=== PATIENT | male | born 1995 | race Caucasian/White ===

== ENCOUNTER 2020-10-09 18:01 | Emergency (ER) | payer OTHER, SELFPAY ==
[2020-10-09 18:03] VITALS: BP 158/103; PULSE 102; RESP 18; TEMP 36.4; O2SAT 97; BMI 30.8
[2020-10-09] MEDS: 0.9% Normal Saline 1,000 ML 1000 ML IV (18:33)
[2020-10-09 18:37] LABS: Absolute Neutrophil Count 4.5 X10^3/uL (2.0-7.7); Basophil# 0.06 X10^3/uL; Basophil% 0.9 % (0-1); Eosinophil# 0.17 X10^3/uL; Eosinophils% 2.5 % (0-5); Hematocrit 47.1 % (40-54); Hemoglobin 16.4 g/dL (13.0-16.5); Lymphocyte % 26.4 % (19-41); Mean Corp Hgb Conc 34.8 g/dL (32-36); Mean Corpuscular Volume 86.3 fL (80-94); Mean Platelet Vol. 10.2 fl (6.2-12.0); Monocyte# 0.31 X10^3/uL; Monocyte% 4.5 % (0-10); NRBC Flagged by Analyzer 0 % (0-5); Neutrophil # 4.46 X10^3/uL (2.7-7.7); Neutrophil % 65.4 % (47-70); Platelet Count 284 K/mm3 (150-450); RBC Distribution Width SD 37.8 fl (35.1-43.9); Red Blood Count 5.46 M/mm3 (4.6-6.2); White Blood Count 6.8 K/mm3 (4.4-11.0)
[2020-10-09 18:55] LABS: ALB/GLOB Ratio 1.3 RATIO (0.9-2.4); AST(SGOT) 19 U/L (15-37); Alanine Aminotransfer ALT/SGPT 40 U/L (16-61); Albumin, Serum 4.4 g/dL (3.2-5.0); Alkaline Phosphatase 84 U/L (45-117); Anion Gap 5 (5-15); BUN 10 mg/dL (7-18); Calcium,Total 8.8 mg/dL (8.5-10.1); Chloride 107 mmol/L (98-107); Creatinine, Serum 1.11 mg/dL (0.70-1.30); EST Glomerular Filtration Rate 87 mL/min (>60); Est Glom Filt Rate - Afr Amer 105 mL/min (>60); Estimated Creatinine Clearance 120.34 ml/min; Globulin 3.3 g/dL (2.2-4.2); Glucose 111 mg/dL (74-106); Lipase 155 U/L (73-393); Protein, Total 7.7 g/dL (6.4-8.2); Sodium Level 138 mmol/L (136-145)
[2020-10-09 19:06] LABS: Bacteria 0 SEEN /hpf (None Seen); Mucous, Urine 0 SEEN /hpf (<or=2+); Red Blood Cells-Urine 0 SEEN /hpf (0-5); Squamous Epithelial Cells - UA 0 SEEN /hpf (0-5); White Blood Cells 0 SEEN /hpf (0-5)
--- NOTE | 2020-10-09 19:15 | CT_ITS ---
STUDY: CT ABDOMEN AND PELVIS WITH CONTRAST REASON FOR EXAM: Male, 24 years old. Upper abdomen pain x 1 week intermittently, worse LUQ. No prior abdominal surgeries. RADIATION DOSAGE (If Supplied By Facility): CTDIvol = ( 16.17 ) mGy, DLP = ( 1377.35 ) mGycm TECHNIQUE: Transaxial images were obtained from the dome of the diaphragm to the symphysis pubis without oral contrast. 100mL Isovue 300 was administered. Sagittal and coronal images were reconstructed. Individualized dose optimization techniques were used for this CT. COMPARISON: 04/28/2016 FINDINGS: The visualized lung bases are unremarkable. The visualized portions of the heart are within normal limits. Normal liver. Normal gallbladder and extrahepatic biliary system. Normal spleen. Normal pancreas. Normal bilateral adrenal glands. Normal right kidney. Normal left kidney. Normal visualized stomach. Normal small intestine. Normal colon. The appendix is visualized and appears normal. Normal abdominal aorta. Normal inferior vena cava. Normal retroperitoneum. Normal urinary bladder. Normal abdominal wall. Normal osseous structures. CT/Abdomen/Pelvis W IV Cont ONLY IMPRESSION: Normal enhanced CT of the abdomen and pelvis. Electronically Signed: Sanchez Sainz DO at 20:35 EST Tel [phone], Service support ,
[2020-10-09 19:27] LABS: Color, Urine Yellow (Yellow); Glucose, Dipstick Normal (Normal); Ketone-Dipstick Negative (Negative); Leukocyte Esterase-Dipstick Negative /ul (Negative); Nitrite-Dipstick Negative (Negative); Occult Blood-Urine Negative /ul (Negative); Protein-Dipstick Negative (Negative); Urine Bilirubin Dipstick Negative (Negative); Urine Clarity Sl. Cloudy (Clear); Urine Urobilinogen Normal (Normal)
--- NOTE | 2020-10-09 20:45 | ED.VISSUMM ---
- ER Visit Summary Date of Service: 10/09/20 Chief Complaint: Abdominal pain History of Present Illness: The patient is a 24 M with left upper quadrant abdominal pain. This has been going on for days but getting worse. It is dull, but then he has sharp pains with movement. He thought he might of had a bulge in the area but that resolved. He had some diarrhea recently as well as back pain. He never had this before. History of Graves' disease and headaches. Uses medical marijuana. No other medications. Physical Examination: Afebrile and vital signs unremarkable except for blood pressure of 158/103. He appears in no acute distress. Heart regular. Lungs clear. Abdomen soft. Back nontender. Skin appears normal. Test Results: CBC, CMP, lipase, urinalysis unremarkable. CT is normal. Emergency Department Course and Treatment: Patient declined pain medicine. He was treated with fluids while awaiting results above. Suspected GI etiology. Nothing to suggest respiratory, cardiac, vascular, pathology. Work-up was unremarkable. I suspect this might be gastric in etiology. We will start him on antacids. Referred to primary care as he does not have a PCP. Referred to surgery for endoscopy if needed. Patient was advised to return for any new or worsening issues. Treatment Plan: As above Disposition: Discharge Impression: Upper abdominal pain This note was generated with [employer] dictation software. It may contain incorrect words, spelling, and punctuation that were not noted in review of the chart prior to signing ED Disposition - Plan for ED Patient: Referrals: Care Physician,No Primary [Primary Care Provider] -
--- NOTE | 2020-10-09 20:47 | ED.DEP ---
ED Disposition - Plan for ED Patient: Instructions: ED Unknown Causes of Abdominal ... Prescriptions: Famotidine [Pepcid] 20 mg PO DAILY #30 tab Prescription Printed Referrals: Vj Escobedo III, MD [STAFF PHYSICIAN] - As Needed Roxana Arevalo MD [STAFF PHYSICIAN] - As Needed
[2020-10-09 21:02] VITALS: BP 144/78; PULSE 87; RESP 18; O2SAT 97
== END 2020-10-09 21:02 | disposition home or self-care (01) ==
LOC: ED 20:02
PROVIDERS: Emergency Provider Emergency Medicine
DX: R10.12 Left upper quadrant pain (principal)
CPT/HCPCS: 74177; 80053; 81001; 83690; 85025; 96360; 99283; J7030; Q9967; A4216

== ENCOUNTER → 2020-10-26 10:27 | Outpatient (CLI) | payer OTHER, SELFPAY ==
[2020-10-26 08:57] VITALS: BMI 29.2
[2020-10-26 12:58] LABS: Vitamin D,25 Hydroxy 8.7 ng/mL
[2020-10-26 13:38] LABS: Hemoglobin A1c 5.1 % (3.8-5.6)
[2020-10-26 14:03] LABS: Cholesterol 148 mg/dL (200); Free T3 3.1 pg/mL (2.18-3.98); High Density Lipoprotein 44 mg/dL; T4 Free Direct 1.23 ng/dL (0.76-1.46); Thyroid Stim Hormone (TSH) 0.19 uIU/mL (0.358-3.74); Triglycerides 65 mg/dL; Very Low Density Lipoprotein 13 mg/dL (5-40)
== END ==
PROVIDERS: PCP Internal Medicine; Referring Provider Internal Medicine; Visit Provider Internal Medicine
DX: E05.00 Thyrotoxicosis with diffuse goiter without thyrotoxic crisis or storm (principal); K21.9 Gastro-esophageal reflux disease without esophagitis; Z13.220 Encounter for screening for lipoid disorders
CPT/HCPCS: 36415; 80061; 82306; 83036; 84439; 84443; 84445; 84481

== ENCOUNTER → 2021-01-08 11:49 | Outpatient (CLI) | payer OTHER, SELFPAY ==
[2021-01-08 16:09] LABS: Free T3 3.2 pg/mL (2.18-3.98); T4 Free Direct 1.15 ng/dL (0.76-1.46); Thyroid Stim Hormone (TSH) 0.77 uIU/mL (0.358-3.74)
== END ==
PROVIDERS: PCP Internal Medicine; Referring Provider Internal Medicine; Visit Provider Internal Medicine
DX: E05.00 Thyrotoxicosis with diffuse goiter without thyrotoxic crisis or storm (principal)
CPT/HCPCS: 36415; 84439; 84443; 84481

== ENCOUNTER → 2021-09-23 09:17 | Outpatient (CLI) | payer OTHER, SELFPAY ==
[2021-09-23 12:37] LABS: Vitamin D,25 Hydroxy 12.4 ng/mL
[2021-09-23 12:43] LABS: Free T3 3.3 pg/mL (2.18-3.98); T4 Free Direct 1.34 ng/dL (0.76-1.46); Thyroid Stim Hormone (TSH) 0.86 uIU/mL (0.358-3.74)
== END ==
PROVIDERS: PCP Internal Medicine; Referring Provider Internal Medicine; Visit Provider Internal Medicine
DX: E05.00 Thyrotoxicosis with diffuse goiter without thyrotoxic crisis or storm (principal); E55.9 Vitamin D deficiency, unspecified
CPT/HCPCS: 36415; 82306; 84439; 84443; 84481

== ENCOUNTER 2021-12-02 09:18 | Outpatient (CLI) | payer OTHER, SELFPAY ==
--- NOTE | 2021-12-02 09:22 | RAD_ITS ---
STUDY: X-RAY - LEFT KNEE REASON FOR EXAM: Male, 26 years old. Left anterior knee pain. TECHNIQUE: 3 view(s) of the knee. COMPARISON: None. FINDINGS: Normal visualized distal femur. Normal visualized proximal tibia and fibula. Normal proximal tibiofibular articulation. Normal medial femorotibial compartment. Normal lateral femorotibial compartment. Normal patellofemoral articulation. The soft tissue structures are unremarkable. RAD/Knee 3 Views IMPRESSION: Normal x-ray examination of the knee. Electronically Signed: Daniel Valerio MD at 10:14 EST ,
== END 2021-12-02 23:59 | disposition home or self-care (01) ==
LOC: MTRAD 09:20
PROVIDERS: PCP Internal Medicine; Referring Provider Internal Medicine; Visit Provider Internal Medicine
DX: M25.562 Pain in left knee (principal)
CPT/HCPCS: 73562

== ENCOUNTER → 2023-04-19 | Outpatient (CLI) | payer OTHER, SELFPAY ==
[2023-04-19 13:04] LABS: Absolute Lymphocyte Count 1.08 X10^3/uL (0.83-4.51); Absolute Neutrophil Count 4.9 X10^3/uL (2.0-7.7); Basophil# 0.05 X10^3/uL; Basophil% 0.8 % (0-1); Eosinophil# 0.06 X10^3/uL; Eosinophils% 0.9 % (0-5); Hemoglobin 17.2 g/dL (13.0-16.5); Lymphocyte # 1.08 X10^3/ul (0.83-4.51); Lymphocyte % 16.7 % (19-41); Mean Corp Hgb Conc 35.8 g/dL (32-36); Mean Corpuscular Hgb 30.3 pg (27.0-32.0); Mean Corpuscular Volume 84.7 fL (80-94); Mean Platelet Vol. 10.4 fl (6.2-12.0); Monocyte# 0.35 X10^3/uL; Monocyte% 5.4 % (0-10); NRBC Flagged by Analyzer 0 % (0-5); Neutrophil # 4.92 X10^3/uL (2.7-7.7); Platelet Count 298 K/mm3 (150-450); RBC Distribution Width CV 12.8 % (11.6-14.6); RBC Distribution Width SD 39.3 fl (35.1-43.9); Red Blood Count 5.67 M/mm3 (4.6-6.2); White Blood Count 6.5 K/mm3 (4.4-11.0)
[2023-04-19 13:28] LABS: Vitamin D,25 Hydroxy 19.7 ng/mL
[2023-04-19 13:48] LABS: ALB/GLOB Ratio 1.4 RATIO (0.9-2.4); AST(SGOT) 22 U/L (15-37); Alanine Aminotransfer ALT/SGPT 56 U/L (16-61); Albumin, Serum 4.6 g/dL (3.2-5.0); Alkaline Phosphatase 72 U/L (45-117); Anion Gap 5 (5-15); BUN 12 mg/dL (7-18); BUN/Creat Ratio 12.1 RATIO (10-20); Calcium,Total 9.5 mg/dL (8.5-10.1); Chloride 103 mmol/L (98-107); Creatinine, Serum 0.99 mg/dL (0.70-1.30); EST Glomerular Filtration Rate 97 mL/min (>60); Est Glom Filt Rate - Afr Amer 117 mL/min (>60); Free T3 4.5 pg/mL (2.18-3.98); Globulin 3.4 g/dL (2.2-4.2); Glucose 99 mg/dL (74-106); Potassium 4.1 mmol/L (3.5-5.1); Sodium Level 136 mmol/L (136-145); T4 Free Direct 1.25 ng/dL (0.76-1.46); Thyroid Stim Hormone (TSH) < 0.01 uIU/mL (0.358-3.74)
== END | disposition home or self-care (01) ==
LOC: LAB 12:20
PROVIDERS: PCP Internal Medicine; Referring Provider Internal Medicine; Visit Provider Internal Medicine
DX: R00.0 Tachycardia, unspecified (principal); E05.00 Thyrotoxicosis with diffuse goiter without thyrotoxic crisis or storm; E55.9 Vitamin D deficiency, unspecified
CPT/HCPCS: 36415; 80053; 82306; 84439; 84443; 84481; 85025

== ENCOUNTER → 2023-05-24 | Outpatient (CLI) | payer OTHER, SELFPAY ==
[2023-05-24 14:29] LABS: Free T3 3.5 pg/mL (2.18-3.98); T4 Free Direct 0.84 ng/dL (0.76-1.46); Thyroid Stim Hormone (TSH) 0.12 uIU/mL (0.358-3.74)
== END | disposition home or self-care (01) ==
LOC: LAB 12:11
PROVIDERS: PCP Internal Medicine; Referring Provider Internal Medicine Endocrinology, Diabetes & Metabolism; Visit Provider Internal Medicine Endocrinology, Diabetes & Metabolism
DX: E05.00 Thyrotoxicosis with diffuse goiter without thyrotoxic crisis or storm (principal)
CPT/HCPCS: 36415; 84439; 84443; 84481

== ENCOUNTER → 2023-07-11 | Outpatient (CLI) | payer OTHER, SELFPAY ==
[2023-07-11 15:40] LABS: Absolute Lymphocyte Count 1.81 X10^3/uL (0.83-4.51); Absolute Neutrophil Count 3.7 X10^3/uL (2.0-7.7); Basophil# 0.03 X10^3/uL; Basophil% 0.5 % (0-1); Eosinophil# 0.09 X10^3/uL; Eosinophils% 1.5 % (0-5); Hematocrit 49.9 % (40-54); Hemoglobin 17.4 g/dL (13.0-16.5); Lymphocyte # 1.81 X10^3/ul (0.83-4.51); Lymphocyte % 30.4 % (19-41); Mean Corp Hgb Conc 34.9 g/dL (32-36); Mean Corpuscular Hgb 30.4 pg (27.0-32.0); Mean Corpuscular Volume 87.2 fL (80-94); Mean Platelet Vol. 10.2 fl (6.2-12.0); Monocyte# 0.29 X10^3/uL; Monocyte% 4.9 % (0-10); NRBC Flagged by Analyzer 0 % (0-5); Neutrophil % 62.2 % (47-70); Platelet Count 259 K/mm3 (150-450); RBC Distribution Width CV 12.2 % (11.6-14.6); RBC Distribution Width SD 39.1 fl (35.1-43.9); Red Blood Count 5.72 M/mm3 (4.6-6.2)
[2023-07-11 16:01] LABS: ALB/GLOB Ratio 1.2 RATIO (0.9-2.4); AST(SGOT) 19 U/L (15-37); Alanine Aminotransfer ALT/SGPT 51 U/L (16-61); Albumin, Serum 4.3 g/dL (3.2-5.0); Alkaline Phosphatase 72 U/L (45-117); Anion Gap 5 (5-15); BUN 9 mg/dL (7-18); BUN/Creat Ratio 9.4 RATIO (10-20); Calcium,Total 9.4 mg/dL (8.5-10.1); Chloride 100 mmol/L (98-107); Creatinine, Serum 0.96 mg/dL (0.70-1.30); EST Glomerular Filtration Rate 100 mL/min (>60); Est Glom Filt Rate - Afr Amer 121 mL/min (>60); Free T3 3.6 pg/mL (2.18-3.98); Globulin 3.5 g/dL (2.2-4.2); Glucose 119 mg/dL (74-106); Potassium 4.1 mmol/L (3.5-5.1); Protein, Total 7.8 g/dL (6.4-8.2); Sodium Level 137 mmol/L (136-145); T4 Free Direct 1.07 ng/dL (0.76-1.46); Thyroid Stim Hormone (TSH) 0.06 uIU/mL (0.358-3.74)
== END | disposition home or self-care (01) ==
LOC: LAB 15:09
PROVIDERS: PCP Internal Medicine; Referring Provider Internal Medicine Endocrinology, Diabetes & Metabolism; Visit Provider Internal Medicine Endocrinology, Diabetes & Metabolism
DX: E05.00 Thyrotoxicosis with diffuse goiter without thyrotoxic crisis or storm (principal); J06.9 Acute upper respiratory infection, unspecified
CPT/HCPCS: 36415; 80053; 84439; 84443; 84481; 85025

== ENCOUNTER → 2023-07-13 | Outpatient (CLI) | payer OTHER, SELFPAY ==
[2023-07-13 15:13] LABS: Absolute Neutrophil Count 4.8 X10^3/uL (2.0-7.7); Basophil# 0.04 X10^3/uL; Basophil% 0.6 % (0-1); Eosinophil# 0.05 X10^3/uL; Eosinophils% 0.7 % (0-5); Hemoglobin 17.3 g/dL (13.0-16.5); Lymphocyte % 23.3 % (19-41); Mean Corp Hgb Conc 34.6 g/dL (32-36); Mean Corpuscular Hgb 29.9 pg (27.0-32.0); Mean Corpuscular Volume 86.4 fL (80-94); Mean Platelet Vol. 10.4 fl (6.2-12.0); Monocyte# 0.33 X10^3/uL; Monocyte% 4.8 % (0-10); NRBC Flagged by Analyzer 0 % (0-5); Neutrophil # 4.84 X10^3/uL (2.7-7.7); Neutrophil % 70.3 % (47-70); Platelet Count 310 K/mm3 (150-450); RBC Distribution Width SD 38.1 fl (35.1-43.9); Red Blood Count 5.79 M/mm3 (4.6-6.2); White Blood Count 6.9 K/mm3 (4.4-11.0)
[2023-07-13 15:31] LABS: Ferritin 146 ng/mL (26-388); Iron 138 ug/dL (65-175); Iron Binding Capacity,Total 370 ug/dL (250-450); PERCENT IRON SATURATION 37.3 % (15.0-55.0)
[2023-07-13 15:41] LABS: D-Dimer Quantitative (DVT/PE) < 0.27 FEU/ug/m (0.27-0.49)
== END | disposition home or self-care (01) ==
LOC: LAB 14:15
PROVIDERS: PCP Internal Medicine; Referring Provider Internal Medicine; Visit Provider Internal Medicine
DX: R00.0 Tachycardia, unspecified (principal); D58.2 Other hemoglobinopathies; E55.9 Vitamin D deficiency, unspecified; E05.00 Thyrotoxicosis with diffuse goiter without thyrotoxic crisis or storm; R42 Dizziness and giddiness
CPT/HCPCS: 36415; 82668; 82728; 83540; 83550; 85025; 85379

== ENCOUNTER → 2023-07-24 | Outpatient (CLI) | payer OTHER, SELFPAY ==
--- NOTE | 2023-07-24 13:15 | RAD_ITS ---
STUDY: X-RAY CHEST REASON FOR EXAM: Male, 27 years old. Cough. TECHNIQUE: Frontal and lateral views of the chest. COMPARISON: None. FINDINGS: Linear scarring in the right midlung zone with scattered healed parenchymal granulomatous calcifications. There is no demonstrated pleural abnormality. Normal size heart. Normal mediastinum and brian. Normal visualized pulmonary arteries. Normal visualized aortic arch and descending thoracic aorta. Normal visualized thoracic spine. Normal visualized ribs, clavicles, and shoulders. No abnormality of the visualized soft tissue structures of the upper abdomen. RAD/Chest PA and Lateral IMPRESSION: No active or acute cardiopulmonary disease. Electronically Signed: Daniel Valerio MD at 14:51 EDT ,
== END | disposition home or self-care (01) ==
LOC: RAD 12:35
PROVIDERS: PCP Internal Medicine; Referring Provider Internal Medicine; Visit Provider Internal Medicine
DX: R05.9 Cough, unspecified (principal)
CPT/HCPCS: 71046

== ENCOUNTER → 2023-11-08 | Outpatient (CLI) | payer OTHER, SELFPAY ==
[2023-11-08 13:45] LABS: Absolute Lymphocyte Count 1.75 X10^3/uL (0.83-4.51); Absolute Neutrophil Count 4.5 X10^3/uL (2.0-7.7); Basophil# 0.06 X10^3/uL; Basophil% 0.9 % (0-1); Eosinophil# 0.18 X10^3/uL; Eosinophils% 2.6 % (0-5); Hematocrit 47.2 % (40-54); Hemoglobin 16.2 g/dL (13.0-16.5); Lymphocyte # 1.75 X10^3/ul (0.83-4.51); Lymphocyte % 25.7 % (19-41); Mean Corp Hgb Conc 34.3 g/dL (32-36); Mean Corpuscular Hgb 29.9 pg (27.0-32.0); Mean Corpuscular Volume 87.1 fL (80-94); Mean Platelet Vol. 10.4 fl (6.2-12.0); Monocyte# 0.32 X10^3/uL; Monocyte% 4.7 % (0-10); NRBC Flagged by Analyzer 0 % (0-5); Neutrophil # 4.46 X10^3/uL (2.7-7.7); Neutrophil % 65.5 % (47-70); Platelet Count 265 K/mm3 (150-450); RBC Distribution Width CV 12.5 % (11.6-14.6); RBC Distribution Width SD 39.7 fl (35.1-43.9); Red Blood Count 5.42 M/mm3 (4.6-6.2); White Blood Count 6.8 K/mm3 (4.4-11.0)
[2023-11-08 14:30] LABS: Vitamin D,25 Hydroxy 15.5 ng/mL
[2023-11-08 14:34] LABS: Free T3 3.2 pg/mL (2.18-3.98); T4 Free Direct 0.86 ng/dL (0.76-1.46); Thyroid Stim Hormone (TSH) 0.45 uIU/mL (0.358-3.74)
== END | disposition home or self-care (01) ==
LOC: LAB 12:09
PROVIDERS: PCP Internal Medicine; Referring Provider Internal Medicine; Visit Provider Internal Medicine
DX: I10 Essential (primary) hypertension (principal); E55.9 Vitamin D deficiency, unspecified; G47.30 Sleep apnea, unspecified; R10.12 Left upper quadrant pain; R51.9 Headache, unspecified; R71.8 Other abnormality of red blood cells
CPT/HCPCS: 36415; 82306; 84439; 84443; 84481; 85025

== ENCOUNTER → 2023-11-14 | Outpatient (CLI) | payer OTHER, SELFPAY | END | disposition home or self-care (01) | PROVIDERS: PCP Internal Medicine; Visit Provider Internal Medicine | DX: G47.30 Sleep apnea, unspecified (principal); G47.19 Other hypersomnia; I10 Essential (primary) hypertension | CPT/HCPCS: 95806 ==

== ENCOUNTER 2024-01-02 07:47 | Day surgery (SDC) | payer OTHER, SELFPAY ==
--- NOTE | 2024-01-02 08:02 | PCM.HP.BLA ---
History and Physical Date of Admission: 01/02/24 Visit Reasons: LUQ PAIN Chief Complaint: pain in upper left quadrant and left side Is patient in pain?: Yes Allergies No Known Allergies Allergy (Verified 11/22/23 09:48) Medications medical marijuana PO 10/26/20 [History Confirmed 11/22/23] naproxen 500 mg tablet 1,000 mg PO BID PRN 10/26/20 [History Confirmed 11/22/23] methimazole 5 mg tablet 5 mg PO DAILY #30 tabs 05/25/23 [Rx Confirmed 11/22/23] metoprolol tartrate 25 mg tablet 25 mg PO DAILY #90 tabs 09/28/23 [Rx Confirmed 11/22/23] PFSH Medical History Frequent headaches GERD (gastroesophageal reflux disease) Graves disease History of seizures as a child Migraines Family History Grandmother Myocardial infarction, Onset Age: 35Other Breast cancer CVA (cerebral vascular accident) Cancer Diabetes Hyperlipemia Hypertension Melanoma Thyroid disorder Social History Smoking Status: Current every day smoker Tobacco: How many years used: 1 alcohol intake: never substance use type: does not use what type of physical activity do you participate in: none HPI HPI HPI: 28-year-old gentleman is being referred by Dr. Genet Molina for surgical consultation regarding a colonoscopy to evaluate the patient forLeft upper quadrant abdominal pain. Written copy my surgical consult recommendations will return to Dr. Butler. By report the patient had a CT scan 2020 which was not remarkable. Apparently recently he has had reaggravation of the discomfort. He additionally carries a history of gastroesophageal reflux disease. Most recent body weight was 263 pounds with a BMI of 34.7. As of November 08, 2023 white blood cell count was 6.8 with a hemoglobin 16.2 hematocrit 47.2 platelet count of 265,000 The patient does have a long-term history of GERD. He states he takes at least 2 Tums per day. He has not been on any other medication for that. He is having problems with left upper quadrant pain. Sometimes its sharp pinching stabbing can radiate to his back. He does not particularly associated with eating. He does not recall a particular physical episode that might of caused the discomfort. It does limit him however from doing some effort. 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 No family history of colon cancer although an aunt had breast cancer. ROS General General: No weight change, appetite, fatigue, colon cancer, breast cancer or weakness HEENT HEENT: No difficulty swallowing, eye injury, eye surgery, swollen glands or hoarseness Endo Endocrine: Yes thyroid disease; No diabetes mellitus, thyroid cancer, Hair loss, heat intolerance or cold intolerance Skin Skin: No rash or changing moles Musc Musculoskeletal: No back problems, arthritis, rheumatoid arthritis, gout or joint pain Cardio Cardiovascular: No murmur, pacemaker, heart disease, atrial fibrillation, high blood pressure, heart attack, heart stent, palpitations, shortness of breat with exertion or chest pain Psych Psychiatric: Yes anxiety; No depression or hearing voices Resp Respiratory: No shortness of breath, No sleep apnea, No cough, No COPD, No asthma, No emphysema and No wheezing Gastro Gastrointestinal: Yes abdominal pain, No nausea or vomiting, No diarrhea, No constipation, No blood in stool, Yes acid reflux, No hemorrhoids, No ulcers, No gallbladder problem and No black,tarry stools Justice Hematologic: No blood thinners, No blood disorders, No bleeding, No anemia and No blood clots Neuro Neurologic: No system reviewed and no additional complaints, except as documented, No as per HPI, No abnormal gait, No abnormal hearing, No abnormal movements, No abnormal speech, No behavioral changes, No burning sensations, No confusion, No convulsions, No disequilibrium, No dizziness, No localized weakness, No frequent falls, No headache(s), No lack of coordination, No loss of vision, No memory loss, No numbness, No other visual disturbances, No radicular pain, No restless legs, No sensory deficit, No syncope, No tingling, No tremor(s), No weakness and No other Exam Const General: cooperative, comfortable and no acute distress Nutritional Appearance: obese HENMT Head: normal to inspection Eyes General: appearance normal, both eyes and all related structures Neck Neck: normal visual inspection Chest Chest palpation & inspection: normal inspection of the chest Other: Palpation of the left costal chondral cartilage is somewhat tender but not duplicating the type of pain that the patient is having.'s chest wall appears to be solid and intact. No particular tenderness more laterally on the costal margin at the site of the patient complaints of discomfort. No abdominal mass subcostally Resp Effort & Inspection: normal respiratory effort Auscultation: clear to auscultation bilaterally Cardio Rhythm: regular rhythm GI Inspection: normal to inspection Palpation: soft and no hepatosplenomegaly Musc Cervical Spine: normal cervical lordosis Skin General: no rashes or lesions noted Neuro General: patient alert, patient awake and patient oriented x3 Extrem General: no calf tenderness Psych Appearance: grossly normal Assessment and Plan Assessment and Plan (1) Recurrent left upper quadrant abdominal pain: Status: Acute (2) GERD (gastroesophageal reflux disease): Status: Chronic Qualifiers: Esophagitis presence: esophagitis presence not specified Qualified Code(s): K21.9 - Gastro-esophageal reflux disease without esophagitis Plan: Left upper quadrant abdominal pain of undetermined etiology with symptoms consistent with gastroesophageal reflux disease. I concur with recommendations on proceeding with a esophagogastroduodenoscopy with possible biopsy as well as a colonoscopy with possible biopsy or polypectomy as indicated. Patient is aware of technique, benefit, risk, alternatives. Although some of the symptoms sound musculoskeletal I am not able to detect anything on physical exam. He has had an opportunity to ask and have questions answered. I appreciate the opportunity of assisting with his surgical care. Copy: Dr. Genet Escobedo M.D., F.A.C.S I have examined the patient and the H&P has been reviewed. There are no clinical changes since date of exam. Jamie Escobedo M.D., F.A.C.S.
[2024-01-02] MEDS: Lactated Ringers 1,000 ML 15 ML IV (08:30)
[2024-01-02 08:36] VITALS: BP 156/117; PULSE 114; RESP 18; TEMP 37.2; O2SAT 97; BMI 33.3
--- NOTE | 2024-01-02 09:00 | EGD_PTH ---
PATIENT: DANIS AMATO LOC: [facility] – [place] U#:[id number] AGE/SX: 28/M ROOM: RE01/02/[address]: Dr. Jamie Escobedo MD : 1995 BED: DIS: 01/02/2024 SPEC #: [id number] RECD: 01/02/24 13:22 STATUS: BETH WILFRED #: [id number] BRITTNEE: 01/02/24 09:[address]: Jamie Escobedo DEPT: SURGICAL PATHOLOGY RECD BY: Zenobia Moscoso ENTERED: 01/02/24 13:40 SP TYPE: EGD BIOPSY SARA DR: Dr. Genet Molina MD Tissues: A - Duodenum, NOS B - Gastric mucous membrane C - Esophagus, NOS D - Esophagus, NOS E - Esophagus, NOS Procedures: Surgery Specimen Level IV HEADER OPERATION: Colonoscopy, EGD biopsy PRE-OP DIAGNOSIS: Recurrent left upper quadrant abdominal pain, GERD TISSUE SUBMITTED: A- Duodenum biopsy, B- Antrum biopsy, C- Greater curvature polyp biopsy, D- Distal esophagus biopsy, E- Mid esophagus biopsy MICROSCOPIC DIAGNOSIS A. Duodenum, biopsy: Fragments of duodenum mucosa, no pathologic diagnosis. B. Antrum, biopsy: Mild gastritis. See microscopic description and comment. C. Greater curvature polyp, biopsy: Mild to moderate gastritis. See microscopic description and comment. D. Distal esophagus, biopsy: A fragment of benign squamous mucosa. E. Mid esophagus, biopsy: A fragment of benign squamous epithelium. SJ/mr 01/03/24 COMMENT B. The results of immunohistochemistry for Helicobacter pylori will be reported separately ([id number]). C. Hyperplastic or fundic gland polyp changes are not seen. MICROSCOPIC DESCRIPTION Slides are reviewed. B. The specimen shows fragments of gastric mucosa with chronic inflammatory cell infiltrates in the lamina propria consisting of lymphocytes and plasma cells, consistent with mild chronic gastritis. C. The specimen shows fragments of gastric mucosa with chronic inflammatory cell infiltrates in the lamina propria consisting of lymphocytes and plasma cells, consistent with mild to moderate chronic gastritis. GROSS DESCRIPTION A. Received in fixative is one container labeled with the patient's name and designated Duodenum biopsy. The specimen consists of two irregular fragments of light inman soft tissue that measure in aggregate 0.4 x 0.3 x 0.1 cm. The specimen is totally submitted in one cassette. B. Received in fixative is one container labeled with the patient's name and designated Antrum biopsy. The specimen consists of one irregular fragment of light inman soft tissue that measures 0.4 x 0.3 x 0.1 cm. The specimen is totally submitted in one cassette. C. Received in fixative is one container labeled with the patient's name and designated Greater curvature polyp biopsy. The specimen consists of two irregular fragments of light inman soft tissue that in aggregate measure 0.6 x 0.3 x 0.1 cm. The specimen is totally submitted in one cassette. D. Received in fixative is one container labeled with the patient's name and designated Distal esophagus biopsy. The specimen consists of one irregular fragment of light inman soft tissue that measures 0.3 x 0.3 x 0.1 cm. The specimen is totally submitted in one cassette. E. Received in fixative is one container labeled with the patient's name and designated Mid esophagus biopsy. The specimen consists of one irregular fragment of light inman soft tissue that measures 0.5 x 0.3 x 0.1 cm. The specimen is totally submitted in one cassette. Jerel 01/02/24 TC:3 CPT: 25935b5
--- NOTE | 2024-01-02 09:00 | IMM_PTH ---
PATIENT: DANIS AMATO LOC: [facility] – [place] U#:[id number] AGE/SX: 28/M ROOM: RE01/02/[address]: Dr. Jamie Escobedo MD : 1995 BED: DIS: 01/02/2024 SPEC #: [id number] RECD: 01/02/24 13:41 STATUS: BETH WILFRED #: [id number] BRITTNEE: 01/02/24 09:[address]: Jamie Escobedo DEPT: IMMUNOHISTOCHEMISTRY RECD BY: Raza Jerry ENTERED: 01/02/24 13:42 SP TYPE: IMMUNO OTHR DR: Dr. Genet Molina MD Tissues: B - Stomach, NOS Procedures: H Pylori (initial) PHYSICIAN & INSTITUTION [place] [id number] SPECIMEN INFORMATION: Tissue Source: B- Antrum biopsy Clinical Info: Recurrent left upper quadrant abdominal pain, GERD Specimen Number: [id number] CPT code: 73081 METHODOLOGY: Deparaffinized sections of prefer/formalin-fixed tissue or PAP/DQ stained slides are incubated with monoclonal/polyclonal antibodies/oligonucleotide probes. Localization is made via biotin free immunoperoxidase method. Appropriate controls are performed and reacted as expected. Results on target cell population are indicated in the following table: RESULTS: ANTIBODY / CLONE RESULT Block B H Pylori (polyclonal) negative These tests were developed and their performance characteristics determined by [facility]. They may not have been cleared or approved by the U.S. Food and Drug Administration. The FDA has determined that such clearance or approval is not necessary. The above immunohistochemical/dualISH markers are ordered and reviewed by the Pathologist. INTERPRETATION: B. Antrum, biopsy: Negative for Helicobacter pylori organisms. JAIMIE/ 01/03/24
[2024-01-02 09:40] VITALS: BP 126/67; BP 156/99; PULSE 87; RESP 16; TEMP 36.2; O2SAT 98
--- NOTE | 2024-01-02 09:43 | OP.EGD_ITS ---
Patient Name: Richardson Armas Procedure Date: 01/02/2024 9:07 AM Date of : 1995 Age: 28 Procedure: Upper GI endoscopy Indications: Abdominal pain in the left upper quadrant Providers: Jamie Escobedo MD Referring MD: Jamie Escobedo MD Medicines: See the Anesthesia note for documentation of the administered medications Complications: No immediate complications. Procedure: Pre-Anesthesia Assessment: - Prior to the procedure, a History and Physical was performed, and patient medications and allergies were reviewed. The patient's tolerance of previous anesthesia was also reviewed. The risks and benefits of the procedure and the sedation options and risks were discussed with the patient. All questions were answered, and informed consent was obtained. Prior Anticoagulants: The patient has taken no anticoagulant or antiplatelet agents. ASA Grade Assessment: II - A patient with mild systemic disease. After reviewing the risks and benefits, the patient was deemed in satisfactory condition to undergo the procedure. After obtaining informed consent, the endoscope was passed under direct vision. Throughout the procedure, the patient's blood pressure, pulse, and oxygen saturations were monitored continuously. The Endoscope was introduced through the mouth, and advanced to the second part of duodenum. The upper GI endoscopy was accomplished without difficulty. The patient tolerated the procedure well. Scope In: 9:15:51 AM Scope Out: 9:22:59 AM Total Procedure Duration Time 0 hours 7 minutes 8 seconds Findings: The middle third of the esophagus was normal. Biopsies were taken with a cold forceps for histology. The lower third of the esophagus was normal. Biopsies were taken with a cold forceps for histology. Diffuse mildly erythematous mucosa without bleeding was found in the gastric antrum. Biopsies were taken with a cold forceps for histology. Multiple sessile polyps with no bleeding and no stigmata of recent bleeding were found in the gastric fundus, in the gastric body, on the greater curvature of the stomach and on the lesser curvature of the stomach. The polyp was removed with a cold biopsy forceps. Resection and retrieval were complete. The examined duodenum was normal. Biopsies were taken with a cold forceps for histology. Impression: - Normal middle third of esophagus. Biopsied. - Normal lower third of esophagus. Biopsied. - Erythematous mucosa in the antrum. Biopsied. - Multiple gastric polyps. Resected and retrieved. - Normal examined duodenum. Biopsied. Recommendation: - Discharge patient to home. - Resume previous diet. - Continue present medications. - Telephone my office for pathology results in 1 week. These findings do not clearly explain patient's left upper quadrant pain. Pathology pending Consider possible imaging.. Procedure Code(s): --- Professional --- 12300, Esophagogastroduodenoscopy, flexible, transoral; with biopsy, single or multiple Diagnosis Code(s): --- Professional --- K31.89, Other diseases of stomach and duodenum K31.7, Polyp of stomach and duodenum R10.12, Left upper quadrant pain CPT copyright 2021 [employer]. All rights reserved. The codes documented in this report are preliminary and upon pantry steward/stewardess review may be revised to meet current compliance requirements. Jamie Escobedo MD 01/02/2024 9:42:41 AM This report has been signed electronically. Number of Addenda: 0 Note Initiated On: 01/02/2024 9:07 AM
--- NOTE | 2024-01-02 09:43 | OP.CCLET_ITS ---
01/02/2024 Genet Molina [facility] [address] [place] [address] Re : Upper GI endoscopy procedure for Richardson Armas Dear Dr. Molina This procedure was performed on Tuesday, January 02, 2024. My impressions and recommendations are as follows: Impressions : - Normal middle third of esophagus. Biopsied. - Normal lower third of esophagus. Biopsied. - Erythematous mucosa in the antrum. Biopsied. - Multiple gastric polyps. Resected and retrieved. - Normal examined duodenum. Biopsied. Recommendations : - Discharge patient to home. - Resume previous diet. - Continue present medications. - Telephone my office for pathology results in 1 week. These findings do not clearly explain patient's left upper quadrant pain. Pathology pending Consider possible imaging.. My findings are described in the full procedure note, which is enclosed. If I can be of further assistance, please feel free to contact me at Doctor phone number(s): Work: . Sincerely, Jamie Escobedo MD 01/02/2024 9:42:41 AM This report has been signed electronically.
[2024-01-02 09:45] VITALS: BP 109/61; BP 156/99; PULSE 94; RESP 16; O2SAT 96
--- NOTE | 2024-01-02 09:45 | OP.COLON_ITS ---
Patient Name: Richardson Armas Procedure Date: 01/02/2024 9:23 AM Date of : 1995 Age: 28 Procedure: Colonoscopy Indications: Abdominal pain in the left upper quadrant Providers: Jamie Escobedo MD Referring MD: Jamie Escobedo MD Medicines: See the Anesthesia note for documentation of the administered medications Patient Profile: Last Colonoscopy: none. The patient's first colonoscopy is today. Complications: No immediate complications. Procedure: Pre-Anesthesia Assessment: - Prior to the procedure, a History and Physical was performed, and patient medications and allergies were reviewed. The patient's tolerance of previous anesthesia was also reviewed. The risks and benefits of the procedure and the sedation options and risks were discussed with the patient. All questions were answered, and informed consent was obtained. Prior Anticoagulants: The patient has taken no anticoagulant or antiplatelet agents. ASA Grade Assessment: II - A patient with mild systemic disease. After reviewing the risks and benefits, the patient was deemed in satisfactory condition to undergo the procedure. After I obtained informed consent, the scope was passed under direct vision. Throughout the procedure, the patient's blood pressure, pulse, and oxygen saturations were monitored continuously. The adult colonoscope was introduced through the anus and advanced to the cecum, identified by appendiceal orifice and ileocecal valve. The colonoscopy was performed without difficulty. The patient tolerated the procedure well. The quality of the bowel preparation was good. The ileocecal valve and the appendiceal orifice were photographed. Scope In: 9:26:07 AM Scope Withdrawal Time 0 hours 5 minutes 55 seconds Scope Out: 9:35:09 AM Total Procedure Duration Time 0 hours 9 minutes 2 seconds Findings: The digital rectal exam findings include non-thrombosed external hemorrhoids, non-thrombosed internal hemorrhoids and internal hemorrhoids that prolapse with straining, but spontaneously regress to the resting position (Grade II). Pertinent negatives include normal prostate (size, shape, and consistency). The colon (entire examined portion) appeared normal. Impression: - Non-thrombosed external hemorrhoids, non-thrombosed internal hemorrhoids and internal hemorrhoids that prolapse with straining, but spontaneously regress to the resting position (Grade II) found on digital rectal exam. - The entire examined colon is normal. - No specimens collected. Recommendation: - Discharge patient to home. - Resume previous diet. - Continue present medications. - Repeat colonoscopy in 10 years for screening purposes. Procedure Code(s): --- Professional --- 05504, Colonoscopy, flexible; diagnostic, including collection of specimen(s) by brushing or washing, when performed (separate procedure) Diagnosis Code(s): --- Professional --- K64.1, Second degree hemorrhoids K64.4, Residual hemorrhoidal skin tags R10.12, Left upper quadrant pain CPT copyright 2021 [employer]. All rights reserved. The codes documented in this report are preliminary and upon remote coders review may be revised to meet current compliance requirements. Jamie Escobedo MD 01/02/2024 9:45:17 AM This report has been signed electronically. Number of Addenda: 0 Note Initiated On: 01/02/2024 9:23 AM
--- NOTE | 2024-01-02 09:46 | OP.CCLET_ITS ---
01/02/2024 Genet Molina [facility] [address] [place] [address] Re : Colonoscopy procedure for Richardson Armas Dear Dr. Molina This procedure was performed on Tuesday, January 02, 2024. My impressions and recommendations are as follows: Impressions : - Non-thrombosed external hemorrhoids, non-thrombosed internal hemorrhoids and internal hemorrhoids that prolapse with straining, but spontaneously regress to the resting position (Grade II) found on digital rectal exam. - The entire examined colon is normal. - No specimens collected. Recommendations : - Discharge patient to home. - Resume previous diet. - Continue present medications. - Repeat colonoscopy in 10 years for screening purposes. My findings are described in the full procedure note, which is enclosed. If I can be of further assistance, please feel free to contact me at Doctor phone number(s): Work: . Sincerely, Jamie Escobedo MD 01/02/2024 9:45:17 AM This report has been signed electronically.
[2024-01-02 09:50] VITALS: BP 128/78; BP 156/99; PULSE 89; RESP 16; TEMP 36.3; O2SAT 95
== END 2024-01-02 10:19 | disposition home or self-care (01) ==
LOC: SDC 07:47 → AC 07:48
PROVIDERS: PCP Internal Medicine; Referring Provider Internal Medicine; Visit Provider Surgery
PROC: 0DJD8ZZ Inspection of Lower Intestinal Tract, Via Natural or Artificial Opening Endoscopic (ICD-10-PCS; CPT 45378; principal; 2024-01-02 08:55)
DX: K29.50 Unspecified chronic gastritis without bleeding (principal); K31.7 Polyp of stomach and duodenum; K64.1 Second degree hemorrhoids; K64.4 Residual hemorrhoidal skin tags; K21.9 Gastro-esophageal reflux disease without esophagitis; R10.12 Left upper quadrant pain; I10 Essential (primary) hypertension; F17.200 Nicotine dependence, unspecified, uncomplicated; E66.9 Obesity, unspecified; Z68.34 Body mass index [BMI] 34.0-34.9, adult; Z79.899 Other long term (current) drug therapy
CPT/HCPCS: 43239; 45378; 88305; 88342; J7120; J2405

== ENCOUNTER 2024-02-27 19:28 | Emergency (ER) | payer OTHER, SELFPAY ==
[2024-02-27 19:28] VITALS: BP 163/108; PULSE 105; RESP 18; TEMP 37; O2SAT 97; BMI 34.2
[2024-02-27] MEDS: Lidocaine 2% /Epi 1:100 (20ml) 20 ML VIAL INFILT (23:05)
[2024-02-27 23:30] VITALS: BP 145/74; PULSE 90; RESP 16; O2SAT 97
--- NOTE | 2024-02-27 23:42 | EDS_ITS ---
HPI History of Present Illness Chief Complaint: Abscess Informant: patient Narrative Narrative: Patient is a 28-year-old male with past medical history of hypertension and migraine headache. He states over the past week he has noticed a lump to his mid upper back. He denies any recent trauma and states the lump has been growing in size and pain. He states he is concerned this is infected and secondary to his comes in for evaluation. He denies any history of immunosuppression [facility] Medical History Wears glasses Marijuana use Anxiety Back pain CPAP (continuous positive airway pressure) dependence Hypertension Graves disease History of seizures as a child Frequent headaches Migraines GERD (gastroesophageal reflux disease) Home Medications ?Medication ?Instructions ?Recorded ?Last Taken ?Type medical marijuana 1 dose PO DAILY PRN 10/26/20 12/30/23 22:00 History methimazole 5 mg tablet 5 mg PO MOTUTHFRSA 01/01/24 01/01/24 09:00 History labetalol 100 mg tablet 50 mg (1/2 x 100 mg) PO BID #90 02/12/24 Unknown Rx tabs clindamycin HCl 300 mg capsule 300 mg PO 4X/DAY 7 days #28 caps 02/27/24 Unknown Rx oxycodone-acetaminophen 5 mg-325 1 tab PO Q6H PRN pain 3 days #12 02/27/24 Unknown Rx mg tablet (Percocet) tabs Allergy/AdvReac Type Severity Reaction Status Date / Time No Known Allergies Allergy Verified 02/27/24 19:29 Family History Grandmother Myocardial infarction, Onset Age: 35 Other Breast cancer CVA (cerebral vascular accident) Cancer Diabetes Hyperlipemia Hypertension Melanoma Thyroid disorder Social History Smoking Status: Former smoker Tobacco: How many years used: 1 alcohol intake: never substance use type: does not use what type of physical activity do you participate in: none ROS ROS ED Constitutional Constitutional ED: Denies chills or fever(s) ENT ENT ED: Denies sore throat Cardiovascular Cardiovascular: Denies chest pain Respiratory/Chest Respiratory/Chest: Denies cough or dyspnea Gastrointestinal Gastrointestinal: Denies abdominal pain, diarrhea, nausea or vomiting Genitourinary Genitourinary ED: Denies dysuria Musculoskeletal Musculoskeletal: Denies myalgias Integumentary Reports abscess; Denies rash Neurologic Neurologic: Denies headache(s) Hematologic/Lymphatic Hematologic/Lymphatic: Denies easy bleeding or easy bruising EXAM Physical Exam Const Vital Signs: 02/27/24 19:28 02/27/24 23:30 Temperature 98.6 F Temperature Source Oral Pulse Rate 105 H 90 Respiratory Rate 18 16 Blood Pressure 163/108 H 145/74 H Blood Pressure Mean 126 97 Pulse Ox 97 97 Oxygen Delivery Method Room Air Room Air Positive well nourished and well developed General Appearance ED: well developed HEENT Reports normocephalic and head/scalp atraumatic Eyes PERRL and EOMs intact bilaterally Neck full ROM and supple Resp normal respiratory effort and clear to auscultation bilaterally Cardio regular rate and regular rhythm Back/Spine Back/Spine Narrative: Patient has a 2 x 2 centimeter area of erythema and induration to the midportion of the upper back consistent with abscess versus cyst. No active drainage or lymphangitic streaking no obvious surrounding secondary cellulitis. Extremity normal to inspection and full ROM Neuro oriented x3, CN's II-XII intact bilaterally, moves all extremities and no focal motor deficits Sensorium / Orientation: alert Psych mental status grossly normal Skin Skin Narrative: Patient has soft tissue changes to the upper back consistent with abscess as documented above MDM MDM MDM Narrative Medical decision making narrative: Patient presented to the ER hypertensive otherwise with stable vitals. He denies any history immunosuppression and does not have any findings to suggest systemic infection. Therefore I do not feel there is need for imaging or laboratory studies. Differential diagnosis is for abscess versus cellulitis versus infected sebaceous cyst. The area was incised and drained as documented below. Following this she is safe to place on antibiotics for any remaining infection and is otherwise safe for discharge Patient had the area cleaned with chlorhexidine. It was anesthetized using 8 mL of 2% lidocaine with epinephrine and local fashion. A #11 blade was used to make a 1 cm incision over top the area of induration. A moderate amount of material was expressed along with sebaceous material. Loculations were dissected with a needle chung. The wound was copiously irrigated with normal saline. The wound was then packed with quarter inch iodoform gauze. Patient tolerated the procedure well without complication Discharge Plan Triage Chief Complaint: Abscess ED Provider: Andes,Marlon Dx/Rx/DC Orders Clinical Impression: Infected sebaceous cyst of skin, Essential hypertension Instructions: ED Abscess Incision And Drainage Prescriptions: New clindamycin HCl 300 mg capsule 300 mg PO 4X/DAY 7 Days Qty: 28 0RF oxycodone-acetaminophen [Percocet] 5-325 mg tablet 1 tab PO Q6H PRN (Reason: pain) 3 Days Qty: 12 0RF No Action medical marijuana 1 dose PO DAILY PRN labetalol 100 mg tablet 50 mg PO BID Qty: 90 1RF methimazole 5 mg tablet 5 mg PO MOTUTHFRSA Primary Care Provider: Genet Molina Referrals: Genet Molina MD [Primary Care Provider] - Activity Restrictions/Additional Instructions: Please remove your packing in 48 to 72 hours and return to the ER should you have any further concerns Print Language: Burundian Disposition Disposition: Home, Self Care
[2024-02-27] MEDS: Clindamycin HCl 150 MG Capsule 300 MG PO (23:58)
[2024-02-28 00:02] VITALS: BP 140/75; PULSE 88; RESP 16; TEMP 36.6; O2SAT 99
== END 2024-02-28 00:03 | disposition home or self-care (01) ==
PROVIDERS: Emergency Provider Emergency Medicine; PCP Internal Medicine; Visit Provider Emergency Medicine
DX: L72.3 Sebaceous cyst (principal); I10 Essential (primary) hypertension; Z79.899 Other long term (current) drug therapy; Z87.891 Personal history of nicotine dependence
CPT/HCPCS: 10061; 99282

== ENCOUNTER 2024-03-02 21:30 | Emergency (ER) | payer OTHER, SELFPAY ==
[2024-03-02 21:30] VITALS: BP 156/100; PULSE 106; RESP 17; TEMP 36.3; O2SAT 98; BMI 33.7
--- NOTE | 2024-03-02 21:41 | EX.ED.DYSGE1 ---
HPI History of Present Illness Chief Complaint: Other, Pain/Inj Detail of Chief Complaint: Foreign body sensation throat Informant: patient Onset/Context/Timing Onset: Hours Context: Sudden Onset Timing: Continuous Quality: Patient was concerned the clindamycin capsule he took got stuck. Location: Upper esophagus region Current Severity: Mild Maximum Severity: Moderate Worsened by: Capsule dissolved and self-harm is HCl probably causing irritation Relieved by: After patient vomited Associated Symptoms Associated Symptoms: None Narrative Narrative: patient is a 28-year-old male. He was seen earlier this week. Infected sebaceous cyst. He was placed on clindamycin. He states the clindamycin got stuck. He felt a better taste in his throat. He then vomited. He still complains of foreign body sensation in his throat. Patient denies drooling. Patient [place] change in his voice. Patient is slightly anxious. He has never had problems with his esophagus or requiring dilatation. Prior similar symptoms: No Recent Illness/Hospitalization: Yes PFSH [facility] Medical History Wears glasses Marijuana use Anxiety Back pain CPAP (continuous positive airway pressure) dependence Hypertension Graves disease History of seizures as a child Frequent headaches Migraines GERD (gastroesophageal reflux disease) Home Medications ?Medication ?Instructions ?Recorded ?Last Taken ?Type medical marijuana 1 dose PO DAILY PRN 10/26/20 12/30/23 22:00 History methimazole 5 mg tablet 5 mg PO MOTUTHFRSA 01/01/24 01/01/24 09:00 History labetalol 100 mg tablet 50 mg (1/2 x 100 mg) PO BID #90 02/12/24 Unknown Rx tabs clindamycin HCl 300 mg capsule 300 mg PO 4X/DAY 7 days #28 caps 02/27/24 Unknown Rx oxycodone-acetaminophen 5 mg-325 1 tab PO Q6H PRN pain 3 days #12 02/27/24 Unknown Rx mg tablet (Percocet) tabs Allergy/AdvReac Type Severity Reaction Status Date / Time No Known Allergies Allergy Verified 03/02/24 21:31 Family History Grandmother Myocardial infarction, Onset Age: 35 Other Breast cancer CVA (cerebral vascular accident) Cancer Diabetes Hyperlipemia Hypertension Melanoma Thyroid disorder Social History Smoking Status: Former smoker Tobacco: How many years used: 1 alcohol intake: never substance use type: does not use what type of physical activity do you participate in: none ROS ROS ED Constitutional Constitutional ED: Denies chills, fever(s), subjective or sweats Eyes Eyes: Denies blurry vision or diplopia ENT ENT ED: Reports other Details: See HPI narrative ; Denies ear pain, rhinorrhea or sore throat Respiratory/Chest Respiratory/Chest: Denies dyspnea or dyspnea on exertion Gastrointestinal Gastrointestinal: Reports nausea and vomiting Allergic/Immunologic Allergic/Immunologic ED: Denies mouth swelling or tongue swelling EXAM Physical Exam Const Vital Signs: 03/02/24 21:30 03/02/24 21:39 Temperature 97.3 F L Temperature Source Temporal Pulse Rate 106 H Respiratory Rate 17 Respiratory Effort Normal Non-Labored Respiratory Pattern Normal Blood Pressure 156/100 H Blood Pressure Mean 118 Pulse Ox 98 Oxygen Delivery Method Room Air Positive well nourished and well developed General Appearance ED: well developed and NAD HEENT Reports moist mucous membranes HEENT Narrative: Posterior pharynx is normal. Eyes PERRL and EOMs intact bilaterally General Eye ED: Yes scleral icterus Neck no lymphadenopathy, supple and no JVD Neck Narrative: Trachea is midline. There is no inspiratory expiratory stridor. There is no dysphonia. Resp normal respiratory effort and clear to auscultation bilaterally Cardio regular rate, regular rhythm, S1 normal heart sound, S2 normal heart sound and no murmurs Neuro oriented x3 Sensorium / Orientation: alert Psych mental status grossly normal Skin no rashes or lesions noted MDM MDM MDM Narrative Medical decision making narrative: Patient given a glass of water. Able to drink without difficulty. There is no emesis. Suspect patient has irritation from the clindamycin hydrochloride capsule dissolving in his throat. Patient was informed The commercial loan closer is slight irritation from the capsule dissolving and getting stuck. Since there is no dysphonia, stridor and he is able to drink water without difficulty will discharge to home. There is no indication for imaging. History & Record Review Additional record(s) reviewed:: Prior ED visit (Patient was seen February 26 for infected sebaceous cyst. His prior visit was October 2020 for abdominal pain of unknown etiology.) and Prior labs Discharge Plan Triage Chief Complaint: Other, Pain/Inj ED Provider: Jeremy Clements Dx/Rx/DC Orders Clinical Impression: Foreign body sensation in throat, History of hypertension Instructions: ED Swallowed Foreign Body (Adult) Prescriptions: No Action medical marijuana 1 dose PO DAILY PRN labetalol 100 mg tablet 50 mg PO BID Qty: 90 1RF methimazole 5 mg tablet 5 mg PO MOTUTHFRSA clindamycin HCl 300 mg capsule 300 mg PO 4X/DAY 7 Days Qty: 28 0RF oxycodone-acetaminophen [Percocet] 5-325 mg tablet 1 tab PO Q6H PRN (Reason: pain) 3 Days Qty: 12 0RF Primary Care Provider: Genet Molina Referrals: Genet Molina MD [Primary Care Provider] - As Needed Print Language: Bengali Disposition Disposition: Home, Self Care
[2024-03-02 21:52] VITALS: BP 129/78; PULSE 89; RESP 15; TEMP 36.1; O2SAT 99
== END 2024-03-02 21:53 | disposition home or self-care (01) ==
PROVIDERS: Emergency Provider Emergency Medicine; PCP Internal Medicine; Visit Provider Emergency Medicine
DX: R09.A2 Foreign body sensation, throat (principal); I10 Essential (primary) hypertension; Z79.899 Other long term (current) drug therapy; Z87.891 Personal history of nicotine dependence
CPT/HCPCS: 99282

== ENCOUNTER → 2024-03-06 | Outpatient (CLI) | payer OTHER, SELFPAY | END | disposition home or self-care (01) | LOC: LABSPEC 13:36 | PROVIDERS: PCP Internal Medicine; Referring Provider Internal Medicine; Visit Provider Internal Medicine | DX: K52.1 Toxic gastroenteritis and colitis (principal); T36.95XA Adverse effect of unspecified systemic antibiotic, initial encounter | CPT/HCPCS: 87493 ==

== ENCOUNTER 2024-03-14 15:42 | Emergency (ER) | payer OTHER, SELFPAY ==
[2024-03-14 15:43] VITALS: BP 154/98; PULSE 74; RESP 16; TEMP 36.1; O2SAT 97; BMI 33.1
[2024-03-14 15:56] VITALS: BP 151/106; PULSE 114; RESP 21; O2SAT 16
--- NOTE | 2024-03-14 15:58 | EKG12_ITS ---
Test Reason : PALPS Blood Pressure : / mmHG Vent. Rate : 065 BPM Atrial Rate : 065 BPM P-R Int : 152 ms QRS Dur : 092 ms QT Int : 388 ms P-R-T Axes : 026 053 024 degrees QTc Int : 403 ms Normal sinus rhythm Normal ECG Confirmed by AUSTEN LINDSEY, JARAD ([id number]), acquisitions editor SARAY RESTREPO ([id number]) on 03/18/2024 9:53:01 AM Referred By: Confirmed By:DEVIN BOYCE MD
--- NOTE | 2024-03-14 16:00 | EDS_ITS ---
HPI History of Present Illness Chief Complaint: Palpitations Informant: patient Onset/Context/Timing Onset: Yesterday Narrative Narrative: Patient presents secondary to palpitations. He states he has had intermittent palpitations since last evening. He describes his palpitations as his heart beating very hard. He does not feel that his heart is racing or skipping beats. He states the worst episode today around 2:30 PM caused him to have some slight shortness of breath. He states he does have a history of a fast heart rate and typically takes labetalol twice a day. He did have his dose this morning. He also recently started Zoloft 2 days ago. He does not feel as if he has had increased stress or anxiety the past 2 days. [facility] Medical History Wears glasses Marijuana use Anxiety Back pain CPAP (continuous positive airway pressure) dependence Hypertension Graves disease History of seizures as a child Frequent headaches Migraines GERD (gastroesophageal reflux disease) Home Medications ?Medication ?Instructions ?Recorded ?Last Taken ?Type methimazole 5 mg tablet 5 mg PO MOTUTHFRSA 01/01/24 01/01/24 09:00 History labetalol 100 mg tablet 50 mg (1/2 x 100 mg) PO BID #90 02/12/24 Unknown Rx tabs sertraline 50 mg tablet 50 mg PO DAILY #30 tabs 03/11/24 Unknown Rx Allergy/AdvReac Type Severity Reaction Status Date / Time No Known Allergies Allergy Verified 03/14/24 15:45 Family History Grandmother Myocardial infarction, Onset Age: 35 Other Breast cancer CVA (cerebral vascular accident) Cancer Diabetes Hyperlipemia Hypertension Melanoma Thyroid disorder Social History Smoking Status: Former smoker Tobacco: How many years used: 1 alcohol intake: never substance use type: does not use what type of physical activity do you participate in: none ROS ROS ED Constitutional Constitutional ED: Denies chills or fever(s) Eyes Eyes: Denies change in vision ENT ENT ED: Denies rhinorrhea or sore throat Cardiovascular Cardiovascular: Reports palpitations; Denies chest pain Respiratory/Chest Respiratory/Chest: Reports dyspnea; Denies cough Gastrointestinal Gastrointestinal: Denies abdominal pain, nausea or vomiting Musculoskeletal Musculoskeletal: Denies back pain or extremity pain Integumentary Denies Abrasions or rash Neurologic Neurologic: Denies headache(s) or weakness Psychiatric Psychiatric: Denies anxiety or depression Allergic/Immunologic Allergic/Immunologic ED: Denies lip swelling or urticaria EXAM Physical Exam Const Vital Signs: 03/14/24 15:43 03/14/24 15:54 03/14/24 15:56 Temperature 97 F L Temperature Source Oral Pulse Rate 74 114 H Respiratory Rate 16 21 H Respiratory Effort Normal Blood Pressure 154/98 H 151/106 H Blood Pressure Mean 116 121 Pulse Ox 97 16 Oxygen Delivery Method Room Air Room Air Positive well nourished and well developed General Appearance ED: well developed HEENT Reports normocephalic and head/scalp atraumatic Eyes PERRL and EOMs intact bilaterally Neck supple Chest Wall inspection of chest normal and palpation of chest normal Resp normal respiratory effort and clear to auscultation bilaterally Cardio regular rhythm Rate: tachycardic GI normal to inspection, nondistended, normoactive bowel sounds Palpation: soft Back/Spine no CVA tenderness Extremity normal to inspection Neuro oriented x3 and no sensory deficits noted Sensorium / Orientation: alert Motor Exam: strength 5/5 throughout Psych mental status grossly normal Skin no rashes or lesions noted MDM MDM MDM Narrative Medical decision making narrative: Patient placed on aquatic ecologist. Heart rate at the time of my exam is in the low 1 teens. He appears to be in sinus rhythm. IV line established. EKG obtained to evaluate for cardiac arrhythmia/ischemia. Chest x-ray obtained to evaluate for acute lung pathology, cardiac size, or mediastinal abnormality. Labwork obtained to evaluate for leukocytosis, anemia, and electrolyte derangement. Patient given a liter of IV fluids. History & Record Review Discussion w/independent historian: Patient Additional record(s) reviewed:: Prior labs Lab Data Attestation: I reviewed the patient's lab results. Labs: Laboratory Results - last 24 hr 03/14/24 16:05 WBC 7.7 RBC 5.26 Hgb 16.2 Hct 45.9 MCV 87.3 MCH 30.8 MCHC 35.3 RDW Std Deviation 38.2 RDW Coeff of [place] 11.9 Plt Count 282 MPV 10.4 Immature Gran % (Auto) 0.400 Neut % (Auto) 79.2 H Lymph % (Auto) 15.9 L [place] % (Auto) 3.7 Eos % (Auto) 0.5 Baso % (Auto) 0.3 Absolute Neuts (auto) 6.1 Absolute Lymphs (auto) 1.23 Nucleated RBC % 0 D-Dimer Quant (PE/DVT) < 0.27 L Sodium 135 L Potassium 3.5 Chloride 104 Carbon Dioxide 27.0 Anion Gap 4 L BUN 9 Creatinine 1.04 Estim Creat Clear Calc 145.07 Est GFR (MDRD) Af Amer 110 Est GFR (MDRD) Non-Af 91 BUN/Creatinine Ratio 8.7 L Glucose 134 H Calcium 9.7 Troponin I High Sens 4 TSH 1.15 Radiography Chest X-Ray - ED: 1 View, Read by ED Physician, Normal, Heart, Lungs and Mediastinum Diagnostic Testing: Clinical Impression(s) from Imaging Studies Chest X-Ray 03/14/24 16:16 IMPRESSION: Chronic interstitial thickening in the right lower lobe. No acute cardiopulmonary pathology. Electronically Signed: Troy Roque MD at 16:34 EDT Reading Location ID and State: [facility] / [place] Tel , Service support , EKG Initial EKG: Attestation: I personally reviewed and interpreted this EKG as follows: Interpretation: Sinus Rhythm (Sinus at 91 with no acute ischemia.) Treatment and Re-Evaluation :: CBC reveals a white count of 7.1 with a hemoglobin of 16.2. Slight left shift noted with 79% neutrophils. Chemistry studies are unremarkable. Glucose is 134. D-dimer is less than 0.27. Troponin is normal at 4 and TSH is normal at 1.15. Portable chest x-ray per my interpretation reveals no acute findings. Radiology interpretation reviewed and agrees. EKG is sinus rhythm at 91 with no evidence of ischemia. On repeat evaluation patient's heart rate is in the low 90s. He is resting comfortably. Test results are discussed with him. We did discuss potentially stopping his Zoloft as symptoms have become worse since he started it, however we also recognize that it may be anxiety causing his palpitations which she needs the Zoloft to help control. He was advised that it would likely take 6 weeks on the Zoloft to really see full effects. As the remainder of the workup is negative, patient will continue to monitor his symptoms. If he is able to continue with his Zoloft he will to try to get to the therapeutic area. If he is symptomatic and not feeling well on the Zoloft, I encouraged him to stop it as he is only been on it for 2 days and to call his psychiatrist and they should be able to switch to a different medication. He voices understanding and agreement. Return instructions were provided. Discharge Plan Triage Chief Complaint: Palpitations ED Provider: Jeannine Sauceda Dx/Rx/DC Orders Clinical Impression: Palpitations Instructions: ED Palpitations Prescriptions: No Action labetalol 100 mg tablet 50 mg PO BID Qty: 90 1RF sertraline 50 mg tablet 50 mg PO DAILY Qty: 30 1RF methimazole 5 mg tablet 5 mg PO MOTUTHFRSA Primary Care Provider: Genet Molina Referrals: Genet Molina MD [Primary Care Provider] - 1-2 Weeks Azam Duque DO [Med Staff - Drawing Frame Tender] - As soon as possible Print Language: Danish Disposition Disposition: Home, Self Care
[2024-03-14] MEDS: 0.9% Normal Saline (1000mL) 1,000 ML 1000 ML IV (16:12)
--- NOTE | 2024-03-14 16:12 | EKG12_ITS ---
Test Reason : PALPITATIONS Blood Pressure : / mmHG Vent. Rate : 091 BPM Atrial Rate : 091 BPM P-R Int : 146 ms QRS Dur : 094 ms QT Int : 352 ms P-R-T Axes : 045 057 056 degrees QTc Int : 432 ms Normal sinus rhythm Normal ECG Confirmed by NILESH LINDSEY, MELANIE ([id number]), editor house organ MARLENE BENTLEY ([id number]) on 03/18/2024 12:46:08 PM Referred By: Confirmed By:MELANIE GALLOWAY MD
--- NOTE | 2024-03-14 16:16 | RAD_ITS ---
STUDY: X-RAY CHEST REASON FOR EXAM: Male, 28 years old. palpitations TECHNIQUE: AP portable COMPARISON: July 24, 2023 FINDINGS: Chronic scarring in the right lower lobe. There is no demonstrated pleural abnormality. Normal size heart. Normal mediastinum and brian. Normal visualized pulmonary arteries. Normal visualized aortic arch and descending thoracic aorta. Normal visualized thoracic spine. Normal visualized ribs, clavicles, and shoulders. There is no demonstrated abnormality of the visualized soft tissue structures of the upper abdomen. RAD/Chest 1 View (Portable) IMPRESSION: Chronic interstitial thickening in the right lower lobe. No acute cardiopulmonary pathology. Electronically Signed: Troy Roque MD at 16:34 EDT ,
[2024-03-14 16:36] LABS: Absolute Lymphocyte Count 1.23 X10^3/uL (0.83-4.51); Absolute Neutrophil Count 6.1 X10^3/uL (2.0-7.7); Basophil# 0.02 X10^3/uL; Basophil% 0.3 % (0-1); Eosinophil# 0.04 X10^3/uL; Eosinophils% 0.5 % (0-5); Hematocrit 45.9 % (40-54); Hemoglobin 16.2 g/dL (13.0-16.5); Lymphocyte # 1.23 X10^3/ul (0.83-4.51); Lymphocyte % 15.9 % (19-41); Mean Corp Hgb Conc 35.3 g/dL (32-36); Mean Corpuscular Hgb 30.8 pg (27.0-32.0); Mean Corpuscular Volume 87.3 fL (80-94); Mean Platelet Vol. 10.4 fl (6.2-12.0); Monocyte# 0.29 X10^3/uL; Monocyte% 3.7 % (0-10); NRBC Flagged by Analyzer 0 % (0-5); Neutrophil # 6.13 X10^3/uL (2.7-7.7); Neutrophil % 79.2 % (47-70); Platelet Count 282 K/mm3 (150-450); RBC Distribution Width CV 11.9 % (11.6-14.6); RBC Distribution Width SD 38.2 fl (35.1-43.9); Red Blood Count 5.26 M/mm3 (4.6-6.2); White Blood Count 7.7 K/mm3 (4.4-11.0)
[2024-03-14 16:48] LABS: D-Dimer Quantitative (DVT/PE) < 0.27 FEU/ug/m (0.27-0.49)
[2024-03-14 17:00] LABS: Anion Gap 4 (5-15); BUN 9 mg/dL (7-18); BUN/Creat Ratio 8.7 RATIO (10-20); Calcium,Total 9.7 mg/dL (8.5-10.1); Chloride 104 mmol/L (98-107); Creatinine, Serum 1.04 mg/dL (0.70-1.30); EST Glomerular Filtration Rate 91 mL/min (>60); Est Glom Filt Rate - Afr Amer 110 mL/min (>60); Estimated Creatinine Clearance 145.07 ml/min; Glucose 134 mg/dL (74-106); Potassium 3.5 mmol/L (3.5-5.1); Sodium Level 135 mmol/L (136-145); Thyroid Stim Hormone (TSH) 1.15 uIU/mL (0.358-3.74); Troponin-I HS 4 pg/mL (3.0-78.0)
[2024-03-14 17:40] VITALS: BP 138/88; PULSE 95; RESP 16; TEMP 36.7; O2SAT 97
== END 2024-03-14 17:53 | disposition home or self-care (01) ==
PROVIDERS: Emergency Provider Emergency Medicine; PCP Internal Medicine; Visit Provider Emergency Medicine
DX: R00.2 Palpitations (principal); F41.9 Anxiety disorder, unspecified; Z87.891 Personal history of nicotine dependence; Z79.899 Other long term (current) drug therapy
CPT/HCPCS: 71045; 80048; 84443; 84484; 85025; 85379; 93005; 96360; 99285; A4216

== ENCOUNTER 2024-03-16 15:48 | Emergency (ER) | payer OTHER, SELFPAY ==
[2024-03-16 15:48] VITALS: BP 162/111; PULSE 86; RESP 17; TEMP 36.3; O2SAT 97; BMI 32.7
[2024-03-16 16:15] VITALS: BP 139/98; PULSE 78; RESP 9; O2SAT 96
[2024-03-16 16:40] VITALS: BP 139/98; PULSE 78; RESP 9; TEMP 36.3; O2SAT 96
--- NOTE | 2024-03-16 17:01 | EDS_ITS ---
HPI <MANUEL Tejeda - Last Filed: 03/16/24 17:08> History of Present Illness Chief Complaint: Palpitations Narrative Narrative: 28-year-old male with past medical history of hypertension, hyperthyroidism on methimazole states he started having palpitations the evening of 03/13/2024. He had started Zoloft the day before for anxiety and thought it may be causing the issue. He states after eating or drinking his heart will pound and race for several seconds. He has tried to lay down in bed and remain calm but still occurs. He has no chest pain, shortness of breath, nausea or vomiting, or exertional symptoms. He was evaluated in the emergency room 2 days ago and reports normal testing. He is having the same symptoms and could not get into his primary care doctor since it is the weekend so presents again. PFS <MANUEL Tejeda - Last Filed: 03/16/24 17:08> [facility] Medical History Wears glasses Marijuana use Anxiety Back pain CPAP (continuous positive airway pressure) dependence Hypertension Graves disease History of seizures as a child Frequent headaches Migraines GERD (gastroesophageal reflux disease) Home Medications ?Medication ?Instructions ?Recorded ?Last Taken ?Type methimazole 5 mg tablet 5 mg PO MOTUTHFRSA 01/01/24 01/01/24 09:00 History labetalol 100 mg tablet 50 mg (1/2 x 100 mg) PO BID #90 02/12/24 Unknown Rx tabs sertraline 50 mg tablet 50 mg PO DAILY #30 tabs 03/11/24 Unknown Rx hydroxyzine pamoate 25 mg capsule 25 mg PO TID PRN anxiety #15 caps 03/16/24 Unknown Rx (Vistaril) Allergy/AdvReac Type Severity Reaction Status Date / Time No Known Allergies Allergy Verified 03/14/24 15:45 Family History Grandmother Myocardial infarction, Onset Age: 35 Other Breast cancer CVA (cerebral vascular accident) Cancer Diabetes Hyperlipemia Hypertension Melanoma Thyroid disorder Social History Smoking Status: Former smoker Tobacco: How many years used: 1 alcohol intake: never substance use type: does not use what type of physical activity do you participate in: none ROS <MANUEL Tejeda - Last Filed: 03/16/24 17:08> ROS ED ROS Narrative Constitutional: Negative for fever, chills, malaise. CVS: Negative for chest pain, syncope. Respiratory: Negative for shortness of breath. GI: Negative for abdominal pain, nausea, vomiting. EXAM <MANUEL Tejeda - Last Filed: 03/16/24 17:08> Physical Exam Narrative Exam Narrative: CONST: Patient sitting in no acute distress. EYES: Normal inspection. NECK: Normal inspection. RESP: No respiratory distress, CTAB. CVS: Regular rate and rhythm, no murmur, no gallop. SKIN: Color normal, no rash, warm, dry, intact. EXTREMITIES: Normal appearance, no pedal edema. NEURO: Alert and answering questions appropriately. PSYCH: Normal affect. Const Vital Signs: 03/16/24 15:48 03/16/24 16:08 03/16/24 16:15 Temperature 97.4 F L Temperature Source Temporal Pulse Rate 86 78 Respiratory Rate 17 9 L Respiratory Effort Normal Non-Labored Blood Pressure 162/111 H 139/98 H Blood Pressure Mean 128 111 Pulse Ox 97 96 Oxygen Delivery Method Room Air Room Air 03/16/24 16:40 Temperature 97.4 F L Temperature Source Pulse Rate 78 Respiratory Rate 9 L Respiratory Effort Blood Pressure 139/98 H Blood Pressure Mean 111 Pulse Ox 96 Oxygen Delivery Method <Keyur Rey MD - Last Filed: 03/16/24 21:42> Physical Exam Const Vital Signs: 03/16/24 15:48 03/16/24 16:08 03/16/24 16:15 Temperature 97.4 F L Temperature Source Temporal Pulse Rate 86 78 Respiratory Rate 17 9 L Respiratory Effort Normal Non-Labored Blood Pressure 162/111 H 139/98 H Blood Pressure Mean 128 111 Pulse Ox 97 96 Oxygen Delivery Method Room Air Room Air 03/16/24 16:40 Temperature 97.4 F L Temperature Source Pulse Rate 78 Respiratory Rate 9 L Respiratory Effort Blood Pressure 139/98 H Blood Pressure Mean 111 Pulse Ox 96 Oxygen Delivery Method MDM <MANUEL Tejeda - Last Filed: 03/16/24 17:08> MDM MDM Narrative Medical decision making narrative: Differential: Cardiac arrhythmia, anxiety among others Patient reports palpitations triggered by eating and drinking. There is no associated chest pain, dyspnea, nausea or vomiting or abdominal pain. He appears well and nontoxic. He was initially hypertensive but repeat is 139/98, he is in sinus rhythm between 70-80, and otherwise stable vital signs. His EKG is sinus rhythm with normal intervals and no evidence of ischemic changes or WPW. Patient had a thorough workup for the symptoms on 03/14 with normal CBC, BMP, TSH, troponin and D-dimer so I do not think repeat labs are indicated. I discussed with him this could be anxiety related and prescribed Vistaril. However I did recommend close follow-up with his primary care on Monday as he may need a Holter monitor and further cardiology evaluation. He can also discuss with his psychiatrist restarting Zoloft as if this is triggered by anxiety this may help. He was discharged in stable condition. EKG Initial EKG: Attestation: I personally reviewed and interpreted this EKG as follows: Interpretation: Sinus Rhythm and No Acute Injury Pattern Comments: Normal sinus rhythm at 65 bpm Normal intervals, no acute ischemic changes <Keyur Rey MD - Last Filed: 03/16/24 21:42> [facility] History & Record Review Additional record(s) reviewed:: Prior ED visit and Prior labs Treatment and Re-Evaluation :: Dr. Rey: I have personally performed a face to face assessment of the patient and have reviewed the DENAI Note. I performed a substantive portion of the visit including all aspects of the following. My [place] findings include: History is palpitations after eating, lasting less than 30 seconds. Recently stopped taking Zoloft, had just been started and had workup in ED for palpitations. Exam is afebrile. Vital signs noted. Regular rate and rhythm. Lungs clear to auscultation bilaterally. Abdomen soft nontender with normal active bowel sounds. Medical Decision Making: I reviewed the prior laboratory work. EKG was obtained and interpreted by myself independently as normal sinus rhythm around 65 bpm without ectopy or acute ST changes. No STEMI. As he has had a prior workup within the last 2 days, I do not feel that he needs repeat laboratory work or imaging. He was written a prescription for Vistaril and will follow-up with his psychiatrist. Disposition is discharged home in stable condition. Other additions or changes: [None] Discharge Plan Triage Chief Complaint: Palpitations ED Midlevel Provider: Gina Longoria ED Provider: Keyur Rey Dx/Rx/DC Orders Clinical Impression: Heart palpitations, Anxiety Instructions: ED Palpitations Prescriptions: New hydroxyzine pamoate [Vistaril] 25 mg capsule 25 mg PO TID PRN (Reason: anxiety) Qty: 15 0RF No Action labetalol 100 mg tablet 50 mg PO BID Qty: 90 1RF sertraline 50 mg tablet 50 mg PO DAILY Qty: 30 1RF methimazole 5 mg tablet 5 mg PO MOTUTHFRSA Primary Care Provider: Genet Molina Referrals: Genet Molina MD [Primary Care Provider] - Activity Restrictions/Additional Instructions: The panel blood work you 2 days ago was thorough and within normal limits. I do not think you need emergent labs today. I recommend you follow-up with your primary care doctor. Discussed with your psychiatrist on Monday about continuing Zoloft. Zoloft may help in case these palpitations are anxiety related but does take 6 weeks to have a full effect Print Language: Haitian Disposition Disposition: Home, Self Care Discharge Date/Time: 03/16/24 16:51
== END 2024-03-16 16:51 | disposition home or self-care (01) ==
PROVIDERS: Emergency Provider Emergency Medicine; PCP Internal Medicine; Visit Provider Emergency Medicine
DX: R00.2 Palpitations (principal); F41.9 Anxiety disorder, unspecified; I10 Essential (primary) hypertension; Z87.891 Personal history of nicotine dependence; E05.90 Thyrotoxicosis, unspecified without thyrotoxic crisis or storm; Z79.899 Other long term (current) drug therapy
CPT/HCPCS: 93005; 99282

== ENCOUNTER → 2024-03-29 | Outpatient (CLI) | payer OTHER, SELFPAY | END | disposition home or self-care (01) | LOC: PSN 11:38 | PROVIDERS: PCP Internal Medicine; Referring Provider Internal Medicine; Visit Provider Internal Medicine | DX: R00.2 Palpitations (principal); E55.9 Vitamin D deficiency, unspecified | CPT/HCPCS: 93225; 93226 ==

== ENCOUNTER → 2024-04-26 | Outpatient (CLI) | payer OTHER, SELFPAY ==
--- NOTE | 2024-04-26 09:03 | RAD_ITS ---
EXAM: XR LEFT TOES, 2 OR MORE VIEWS CLINICAL INDICATION: left great toe pain TECHNIQUE: Frontal, lateral and oblique views of the toes of the left foot. COMPARISON: No relevant prior studies available. FINDINGS: BONES/JOINTS: No significant abnormality. No acute fracture. No dislocation. SOFT TISSUES: No significant abnormality. No radiopaque foreign body. RAD/Toe(s) Min 2 Views IMPRESSION: Negative left toe x-rays. Electronically Signed: Tucker Bocanegra DO at 8:40 EDT ,
[2024-04-26 10:25] LABS: Cholesterol 131 mg/dL (200); High Density Lipoprotein 43 mg/dL; Triglycerides 152 mg/dL; Very Low Density Lipoprotein 30 mg/dL (5-40)
[2024-04-26 10:27] LABS: Vitamin D,25 Hydroxy 32.8 ng/mL
[2024-04-26 14:17] LABS: ALB/GLOB Ratio 1.3 RATIO (0.9-2.4); AST(SGOT) 18 U/L (15-37); Alanine Aminotransfer ALT/SGPT 43 U/L (16-61); Albumin, Serum 3.9 g/dL (3.2-5.0); Alkaline Phosphatase 85 U/L (45-117); Anion Gap 2 (5-15); BUN 10 mg/dL (7-18); BUN/Creat Ratio 10.3 RATIO (10-20); Calcium,Total 8.8 mg/dL (8.5-10.1); Chloride 108 mmol/L (98-107); Creatinine, Serum 0.97 mg/dL (0.70-1.30); EST Glomerular Filtration Rate 99 mL/min (>60); Est Glom Filt Rate - Afr Amer 119 mL/min (>60); Free T3 2.9 pg/mL (2.18-3.98); Glucose 104 mg/dL (74-106); Potassium 4.1 mmol/L (3.5-5.1); Protein, Total 6.9 g/dL (6.4-8.2); Sodium Level 139 mmol/L (136-145); T4 Free Direct 1.02 ng/dL (0.76-1.46); Thyroid Stim Hormone (TSH) 1.39 uIU/mL (0.358-3.74)
== END | disposition home or self-care (01) ==
LOC: LAB 08:44
PROVIDERS: PCP Internal Medicine; Referring Provider Internal Medicine Endocrinology, Diabetes & Metabolism; Visit Provider Internal Medicine Endocrinology, Diabetes & Metabolism
DX: M79.675 Pain in left toe(s) (principal); E05.00 Thyrotoxicosis with diffuse goiter without thyrotoxic crisis or storm; I10 Essential (primary) hypertension; E55.9 Vitamin D deficiency, unspecified; Z13.220 Encounter for screening for lipoid disorders
CPT/HCPCS: 36415; 73660; 80053; 80061; 82306; 84439; 84443; 84481

== ENCOUNTER 2024-08-08 15:21 | Emergency (ER) | payer OTHER, SELFPAY ==
[2024-08-08 15:21] VITALS: BP 164/94; PULSE 106; RESP 15; TEMP 35.8; O2SAT 98; BMI 34.6
[2024-08-08 15:39] VITALS: BP 165/101; PULSE 110; RESP 18; O2SAT 95; BMI 34.6
[2024-08-08 16:09] VITALS: BP 151/91; PULSE 100; RESP 16; O2SAT 95
[2024-08-08 16:12] LABS: Absolute Neutrophil Count 4.9 X10^3/uL (2.0-7.7); Basophil# 0.07 X10^3/uL; Eosinophil# 0.11 X10^3/uL; Eosinophils% 1.6 % (0-5); Hematocrit 48.5 % (40-54); Hemoglobin 16.8 g/dL (13.0-16.5); Lymphocyte % 19.2 % (19-41); Mean Corp Hgb Conc 34.6 g/dL (32-36); Mean Corpuscular Hgb 30.2 pg (27.0-32.0); Mean Corpuscular Volume 87.1 fL (80-94); Mean Platelet Vol. 10.1 fl (6.2-12.0); Monocyte# 0.39 X10^3/uL; Monocyte% 5.8 % (0-10); NRBC Flagged by Analyzer 0 % (0-5); Neutrophil # 4.87 X10^3/uL (2.7-7.7); Neutrophil % 72.1 % (47-70); Platelet Count 294 K/mm3 (150-450); RBC Distribution Width CV 11.9 % (11.6-14.6); RBC Distribution Width SD 38.3 fl (35.1-43.9); Red Blood Count 5.57 M/mm3 (4.6-6.2); White Blood Count 6.8 K/mm3 (4.4-11.0)
[2024-08-08 16:20] LABS: Prothrombin Time (Protime)PT. 13.3 SECONDS (11.7-14.9)
[2024-08-08 16:21] LABS: Partial Thromboplast Time 25.6 Seconds (24.1-36.2)
[2024-08-08 16:25] LABS: Anion Gap 4 (5-15); BUN 13 mg/dL (7-18); BUN/Creat Ratio 11.6 RATIO (10-20); Calcium,Total 9.5 mg/dL (8.5-10.1); Chloride 105 mmol/L (98-107); Creatinine, Serum 1.12 mg/dL (0.70-1.30); EST Glomerular Filtration Rate 83 mL/min (>60); Est Glom Filt Rate - Afr Amer 101 mL/min (>60); Estimated Creatinine Clearance 137.68 ml/min; Glucose 125 mg/dL (74-106); Sodium Level 138 mmol/L (136-145); Troponin-I HS 4 pg/mL (3.0-78.0)
[2024-08-08 16:30] VITALS: BP 162/101; PULSE 99; RESP 16; O2SAT 96
[2024-08-08 16:32] LABS: Bacteria 0 SEEN /hpf (None Seen); Mucous, Urine 0 SEEN /hpf (<or=2+); Red Blood Cells-Urine 0 SEEN /hpf (0-5); Squamous Epithelial Cells - UA 0 SEEN /hpf (0-5); White Blood Cells 0 SEEN /hpf (0-5)
[2024-08-08 16:38] LABS: Color, Urine Yellow (Yellow); Glucose, Dipstick Normal (Normal); Ketone-Dipstick Negative (Negative); Leukocyte Esterase-Dipstick Negative /ul (Negative); Nitrite-Dipstick Negative (Negative); Occult Blood-Urine Negative /ul (Negative); Protein-Dipstick Negative (Negative); Urine Bilirubin Dipstick Negative (Negative); Urine Clarity Clear (Clear); Urine Urobilinogen Normal (Normal)
[2024-08-08] MEDS: Ketorolac 15 MG/ML Vial IV (16:54)
[2024-08-08] MEDS: Metoclopramide 10 MG/2 ML Vial 5 MG IV (16:54)
[2024-08-08 17:00] VITALS: BP 146/92; PULSE 95; RESP 16; O2SAT 95
[2024-08-08 17:45] VITALS: BP 148/78; PULSE 92; RESP 18; TEMP 36.6; O2SAT 97
== END 2024-08-08 17:46 | disposition home or self-care (01) ==
PROVIDERS: Emergency Provider Emergency Medicine; PCP Internal Medicine; Visit Provider Emergency Medicine
DX: G43.909 Migraine, unspecified, not intractable, without status migrainosus (principal); I10 Essential (primary) hypertension
CPT/HCPCS: 70496; 70498; 71045; 80048; 81001; 84484; 85025; 85610; 85730; 93005; 96374; 96375; 99283; Q9967; A4216

== ENCOUNTER → 2024-12-02 | Outpatient (CLI) | payer OTHER, SELFPAY ==
[2024-12-02 15:05] LABS: Thyroid Stim Hormone (TSH) 0.327 uIU/mL (0.300-4.200)
== END | disposition home or self-care (01) ==
LOC: LAB 13:49
PROVIDERS: PCP Internal Medicine; Referring Provider Internal Medicine Endocrinology, Diabetes & Metabolism; Visit Provider Internal Medicine Endocrinology, Diabetes & Metabolism
DX: E05.00 Thyrotoxicosis with diffuse goiter without thyrotoxic crisis or storm (principal)
CPT/HCPCS: 36415; 84439; 84443; 84481

== ENCOUNTER → 2025-07-23 | Outpatient (CLI) | payer OTHER, SELFPAY ==
[2025-07-23 09:24] LABS: Hematocrit 43.8 % (40-54); Hemoglobin 15.3 g/dL (13.0-16.5); Immature Granulocytes Count 0.030 X10^3/uL (0.0-0.0); Mean Corp Hgb Conc 34.9 g/dL (32-36); Mean Corpuscular Volume 85.7 fL (80-94); Mean Platelet Vol. 9.9 fl (6.2-12.0); NRBC Flagged by Analyzer 0 % (0-5); Platelet Count 258 K/mm3 (150-450); RBC Distribution Width CV 12.4 % (11.6-14.6); RBC Distribution Width SD 38.6 fl (35.1-43.9); Red Blood Count 5.11 M/mm3 (4.6-6.2); White Blood Count 6.9 K/mm3 (4.4-11.0)
[2025-07-23 10:12] LABS: Albumin, Serum 4.6 g/dL (3.5-5.0); BUN 12 mg/dL (4-19); BUN/Creat Ratio 11.5 RATIO (10-20); Calcium,Total 9.6 mg/dL (7.6-11.0); Globulin 2.7 g/dL (2.2-4.2); Glucose 131 mg/dL (70-99)
[2025-07-23 10:13] LABS: AST(SGOT) 14 U/L (<=37); Alanine Aminotransfer ALT/SGPT 33 U/L (<=46); Alkaline Phosphatase 69 U/L (40-129); Anion Gap 12 (5-15); Carbon Dioxide 24.3 mmol/L (21.0-32.0); Chloride 99 mmol/L (98-108); Cholesterol 212 mg/dL (<=200); Low Density Lipoprotein Calc. 144 mg/dL; Potassium 4.1 mmol/L (3.3-5.1); Triglycerides 164 mg/dL; Very Low Density Lipoprotein 33 mg/dL (5-40); Vitamin D,25 Hydroxy 19.4 ng/mL (30-100); cholesterol:hdl ratio screen 5.61
[2025-07-23 10:28] LABS: Free T3 3.7 pg/mL (2.18-3.98)
== END | disposition home or self-care (01) ==
PROVIDERS: Internal Medicine Endocrinology, Diabetes & Metabolism; PCP Internal Medicine; Referring Provider Internal Medicine; Visit Provider Internal Medicine
DX: Z13.220 Encounter for screening for lipoid disorders (principal); F33.2 Major depressive disorder, recurrent severe without psychotic features; F41.1 Generalized anxiety disorder; I10 Essential (primary) hypertension; E55.9 Vitamin D deficiency, unspecified; E05.00 Thyrotoxicosis with diffuse goiter without thyrotoxic crisis or storm
CPT/HCPCS: 36415; 80053; 80061; 82306; 84439; 84443; 84481; 85025